=== PATIENT | male | born 1985 | race Caucasian/White ===

== ENCOUNTER 2024-04-05 15:27 | Emergency (ER) | payer MEDICAID ==
[~2024-04-05] VITALS: Ht 175.3 cm; Wt 77.1 kg
[2024-04-05 15:43] VITALS: BP 133/89; TEMP 98.3
[2024-04-05] MEDS ORDERED: POLY10DR3 EACHEYE (17:28)
[2024-04-05] MEDS ORDERED: dexaMETHasone SOD PHOSPHATE 1 ML ONE (17:32)
[2024-04-05] MEDS: dexaMETHasone SOD PHOSPHATE 10 MG/ML VIAL MC ONE (17:36)
[2024-04-05 17:37] VITALS: O2SAT 98
== END 2024-04-05 17:38 | disposition home or self-care (01) ==
LOC: ER 15:29
DX: H10.9 Unspecified conjunctivitis (principal); J02.9 Acute pharyngitis, unspecified; Z90.89 Acquired absence of other organs
CPT/HCPCS: 99283; 87070; 87880; J1100; 86403-TC